=== PATIENT | female | born 1935 | race Caucasian/White ===

== ENCOUNTER 2016-09-16 11:38 | Inpatient (IN) | payer MEDICARE, MEDICAID ==
[2016-09-16] VITALS (12 sets, daily range): BP systolic 88–138; BP diastolic 48–76; BMI 21.8
[~2016-09-16] VITALS: Ht 162.6 cm; Wt 63.4 kg
[~2016-09-16 11:38] MED LIST: ACETAMINOPHEN500 M1 PO; ACIDOPHILUS LAC1 CAP PO; ARAVA10 MG PO; ASCORBIC ACID500 MG PO; ASPIRIN81 MG PO; ATIVAN0.5 MG PO; ATROVENT 0.02%2.5 ML UPD; ATROVENT HFA12.9 GM INH; BENZONATATE200 MG PO; BISCOLAX10 MG/SUPP RC; BROVANA15 MCG/2 M IH; BUMEX 1 MG TAB1 MG PO; CALCIUM 500 +1 EAC3 PO; CARAFATE1 G PO; CELEXA20 MG PO; CIPRO500 MG PO; CLEOCIN HCL150 MG PO; CLONAZEPAM2 MG/TAB PO; COLACE100 MG PO; CORDARONE200 MG PO; COREG6.25 MG PO; DETROL LA4 MG PO; DILAUDID2 MG PO; DILAUDID4 MG PO; DURAGESIC1 PATCH .1 TD; DURAGESIC1 PATCH .7 TD; EZFE 200200 MG PO; FERROUS SULFAT325 MG PO; FLUTICASONE PRO16 GM NASAL; FOLIC ACID1 MG PO; HYDROCORTISONE30 G9 TOPICAL; IBUPROFEN200 MG PO; IBUPROFEN400 MG PO; IPRAT-ALBUT 0.5-3 ML UPD; K-DUR20 MEQ PO; KLONOPIN1 MG PO; LASIX INJ40 MG/4 ML IV; LASIX20 MG PO; LEVAQUIN PREMI750 MG IV; LEVAQUIN500 MG PO; LEVAQUIN750 MG PO; LIORESAL 10 MG10 MG PO; LOPRESSOR25 MG PO; MEDROL DOSE PACK4 MG; MEDROL4 MG PO; MELATONIN 3 MG1 TAB PO; METHOTREXATE2.5 MG PO; MICRO-K10 MEQ PO; MIRALAX17 GM PO; MS CONTIN15 MG PO; MUCINEX DM ER1 EAC1 PO; MUCINEX600 MG PO; NEURONTIN 300300 MG PO; NITRO-DUR0.4 MG TD; NYSTATIN1 PWD TOPICAL; OMEPRAZOLE20 M1 PO; ONCOLOGY MOUTHWA5 ML PO; ORA RELIEF177 ML TOPICAL; OXYCODONE HCL10 MG; OXYCONTIN10 MG; PEPCID40 MG PO; PERCOCET 10/3251 TA1 PO; PLAVIX75 MG PO; POLYSPORIN OINT15 G1 TP; PRAVACHOL20 MG PO; PREDNISONE20 MG PO; PREDNISONE5 MG PO; PREVACID15 MG PO; PRILOSEC20 MG PO; PROCARDIA XL PO; PROTONIX I40 MG/VIAL IV; PROTONIX40 MG PO; PULMICORT0.5 MG/21 UPD; REQUIP0.5 MG PO; RISPERDAL0.5 MG PO; ROCEPHIN 1 GM IN1 GM IV; SALINE NASAL SP45 ML NASAL; SENNA PLUS PO; SENNA PLUS TA1 UDTAB PO; SEROQUEL25 MG PO; SEROQUEL50 MG PO; STERAPRED 5MG 125 MG PO; SYNTHROID25 MCG PO; TESSALON PERLE100 MG PO; TRAZODONE HCL50 MG PO; ULTRAM50 MG PO; VENTOLIN HFA18 GM INH; XOPENEX 1.1.25 MG/3 UPD; ZITHROMAX250 MG PO; ZITHROMAX500 MG PO
[2016-09-16 13:02] LABS: BASOPHILS 0.3 % (0.0-2.0); EOSINOPHILS 0.7 % (0-7); HEMATOCRIT 22.4 % (36.0-48.0); IMMATURE GRANULOCYTES 1.4 % (0-5); LYMPHOCYTES 28.8 % (15-50); MCH 29.1 pg (26.0-34.0); MCHC 30.8 g/dL (31.0-37.0); MCV 94.5 fL (80.0-100.0); MEAN PLATELET VOLUME 11.3 fL (7.4-10.4); MONOCYTES 15.4 % (2-11); NEUTROPHILS 53.4 % (40-80); RBC 2.37 10x6/uL (4.00-5.40); RDW 20.3 % (11.5-14.5); WBC 8.6 10x3/uL (4.8-10.8)
[2016-09-16 13:04] LABS: HEMOGLOBIN 6.9 g/dL (12-16); PLATELET COUNT 185 10x3/uL (130-400)
[2016-09-16 13:16] LABS: APTT 31.9 SECONDS (22.8-39.4); INR 1.13 (0.85-1.17); PROTIME 14.4 SECONDS (11.6-15.0)
[2016-09-16 13:27] LABS: ALBUMIN 2.2 g/dL (3.4-5.0); ANION GAP 13.3 mmol/L (8-16); BILIRUBIN - TOTAL 0.47 mg/dL (0.2-1.3); CALCIUM 8.6 mg/dL (8.5-10.1); CARBON DIOXIDE 25.3 mmol/L (21.0-32.0); POTASSIUM - SERUM 4.6 mmol/L (3.5-5.1); PROTEIN - SERUM 5.3 g/dL (6.4-8.2)
[2016-09-16 13:30] LABS: TROPONIN-I 0.029 ng/mL (0.000-0.060)
--- NOTE | 2016-09-16 14:04 | NUR ---
REC'D FROM ER. HOOKED UP TO CM. NS RATE OF 76. HYPOTENSIVE AT 88/48 WITH A MAP OF 64. A&0 X3. DENIES PAIN. REQUESTED H20, TOLD HER MAYBE AFTER THE PROCEDURE. DR. HICKS IN ROOM. DISCUSSED SCOPING WITH HER RR 14 EVEN AND UNLABORED. RIGHT 18 GAUGE AC PIV,SL. SCD'S PLACED. 2L O2 VIA NC. SATTING 94%. PENA. FOLLOWS COMMANDS.PPP. SEE FLOW SHEET FOR ADDITIONAL ASSESSMENT.
--- NOTE | 2016-09-16 14:45 | NUR ---
INCONTINENT OF STOOL. LIQUID MAROONE. 400 CC. BATHED. LINEN CHANGED.
--- NOTE | 2016-09-16 15:15 | NUR ---
DR. HICKS AT BEDSIDE. CONSENTS OBTAINED AND HAVE BEEN SIGNED FOR UPPER GI.
--- NOTE | 2016-09-16 15:20 | NUR ---
EGD IN PROGRESS. SEE JEANNIE MATTHEWS SUPERVISOR GENERAL INFORMATION.
--- NOTE | 2016-09-16 15:35 | NUR ---
ARRESTED. CODE BLUE INITIATED.
--- NOTE | 2016-09-16 15:35 | NUR ---
DR. LISA AMADOR.
--- NOTE | 2016-09-16 15:54 | NUR ---
DR. LISA AMADOR.
--- NOTE | 2016-09-16 16:34 | NUR ---
BLOOD BEING DRAWN FOR ABG'S BY ABDIRAHMAN RT
--- NOTE | 2016-09-16 16:36 | NUR ---
H&H 8.5
--- NOTE | 2016-09-16 16:40 | NUR ---
H&H RESULTS CALLED TO DR. GONZALEZ. 8.5 & 25. ORDERS REC'D TO GET H&H LEVEL AT 1900.
[2016-09-16 17:07] LABS: HEMATOCRIT 29.4 % (36.0-48.0); HEMOGLOBIN 9.3 g/dL (12-16)
--- NOTE | 2016-09-16 17:17 | NUR ---
DR. GERARDO NOTIFIED OF CONSULT.
--- NOTE | 2016-09-16 18:28 | NUR ---
FAMILY SPOKE WITH BY ADRIEL DOTY RN AND UPDATED.
--- NOTE | 2016-09-16 18:28 | NUR ---
PASSWORD OBTAINED. "GRACE".
--- NOTE | 2016-09-16 18:28 | NUR ---
ADRIEL DOTY RN SPOKE WITH MATTHEW OCHOA AND UPDATED ABOUT PT. HER PHONE NUMBER IS [phone].
--- NOTE | 2016-09-16 18:40 | NUR ---
DR. MCKEON PAGED ABOUT CONSULT.
--- NOTE | 2016-09-16 18:48 | NUR ---
DR. MCKEON RETURNED PAGE AND I UPDATED HIM ABOUT THE CONSULT.
--- NOTE | 2016-09-16 18:52 | NUR ---
OPENS EYES BUT DOES NOT FOLLOW COMMANDS
--- NOTE | 2016-09-16 19:20 | NUR ---
FILIPPO. FROM [facility]MR SITE CAME TO INTERROGATE HER LEFT UPPER CHEST WALL PACEMAKER/DEFIB. NO DEFIB PRESENT ACCORDING TO INTERROGATION. NO ISSUES SINCE JULY 2016. REPORT RECEIVED AT BEDSIDE BY JAD VEGA RN.
--- NOTE | 2016-09-16 21:15 | NUR ---
INCONTINENT OF BOWEL. CLEANSED MAROON COLORED STOOL FROM PERINEAL AREA. COMPLETE BED BATH AND LINEN CHANGE COMPLETED. APPROX. 100ML TOTAL NOTED. SPONTANEOUS JERKING WITH STIMULATION AND WITHOUT STIMULATION. COUGHS RATHER VIOLENTLY WHEN TURNED SIDE TO SIDE. PULLED UP IN BED AND TURNED AND REPOSITIONED. ORAL CARE PROVIDED.
--- NOTE | 2016-09-16 22:05 | NUR ---
DAUGHTER-POA CALLED AND CONSENTS OBTAINED FOR CVL PLACEMENT. VERIFIED BY 2ND RN.
--- NOTE | 2016-09-16 23:45 | NUR ---
JAEL AYON AT BEDSIDE TO DRAW Q6H H & H. REASSESSMENT COMPLETED. SEE ASSESSMENT FLOWSHEET FOR DETAILS.
[2016-09-17] VITALS (24 sets, daily range): BP systolic 84–168; BP diastolic 42–105
--- NOTE | 2016-09-17 | NUR ---
TEMP ASSESSED ORALLY. TEMP 103 FARENHEIT. ICE PACKS APPLIED TO BEHIND NECK AND RT GROIN.
[2016-09-17 00:01] LABS: HEMATOCRIT 31.2 % (36.0-48.0); HEMOGLOBIN 10.4 g/dL (12-16)
--- NOTE | 2016-09-17 00:42 | NUR ---
DR. GERARDO CALLED AND MADE AWARE OF TEMP AND JERKY TYPE MOVEMENTS STILL NOTED. NEW ORDERS RECEIVED.
--- NOTE | 2016-09-17 00:55 | NUR ---
DR. SINGH CALLED AND MADE AWARE OF CONSULT. NEW ORDERS RECEIVED.
--- NOTE | 2016-09-17 02:00 | NUR ---
TEMP REASSESSED. TEMP 100.9 ORALLY. UNCLAMPED NG TUBE AFTER KLONOPIN GIVEN. HOT TO TOUCH FOREHEAD. FAN IN ROOM AND ON HIGH. WILL MONITOR.
--- NOTE | 2016-09-17 02:40 | NUR ---
BACK IN SVT AGAIN FOR SECOND TIME IN LAST [address] MCKEON CALLED AND INFORMED OF HEART RATE IN THE 140'S AND CURRENT B/P. ORDERS RECEIVED. WILL MONITOR.
--- NOTE | 2016-09-17 03:45 | NUR ---
REASSESSMENT COMPLETED. SEE ASSESSMENT FLOWSHEET. PORTABLE CHEST XRAY JUST COMPLETED. TURNED AND REPOSITIONED. ORAL CARE PROVIDED. JUMPS TO STIMULATION IN A STARTLE TYPE REACTION. DOES NOT FOLLOW COMMANDS. WILL CONTINUE TO MONITOR.
--- NOTE | 2016-09-17 04:00 | NUR ---
HR IN THE 80'S-NSR NOW. ICE PACKS REFILLED AND REPLACED ON BODY. WILL MONITOR.
--- NOTE | 2016-09-17 05:34 | NUR ---
JERKING MOVEMENTS MORE FREQUENT AND IN LONGER DURATION APPROX. 10 SECONDS LONG NOW. IV ATIVAN 2 MG GIVEN ORDERED. WILL MONITOR.
--- NOTE | 2016-09-17 06:45 | NUR ---
REPORT GIVEN TO JAD ESPOSITO.
[2016-09-17 06:54] LABS: BASOPHILS 0.4 % (0.0-2.0); EOSINOPHILS 0.2 % (0-7); HEMATOCRIT 28.1 % (36.0-48.0); HEMOGLOBIN 9.3 g/dL (12-16); IMMATURE GRANULOCYTES 0.8 % (0-5); LYMPHOCYTES 15.3 % (15-50); MCH 29.9 pg (26.0-34.0); MCHC 33.1 g/dL (31.0-37.0); MEAN PLATELET VOLUME 11.4 fL (7.4-10.4); MONOCYTES 12.3 % (2-11); RDW 18.5 % (11.5-14.5); WBC 8.5 10x3/uL (4.8-10.8)
[2016-09-17 06:57] LABS: MCV 90.4 fL (80.0-100.0); PLATELET COUNT 144 10x3/uL (130-400); RBC 3.11 10x6/uL (4.00-5.40)
--- NOTE | 2016-09-17 07:00 | NUR ---
REC'D CARE OF PT. SEDATED ON VENT. VSS.
[2016-09-17 07:24] LABS: ANION GAP 17.1 mmol/L (8-16); CALCIUM 8.1 mg/dL (8.5-10.1); CARBON DIOXIDE 20.9 mmol/L (21.0-32.0); CREATININE - SERUM 1.2 mg/dL (0.6-1.3)
--- NOTE | 2016-09-17 07:44 | NUR ---
INITIAL ASSESSMENT COMPLETED. SEE FLOW SHEET. UNCONTROLLABLE TWITCHES NOTED. SEIZURE LIKE ACTIVITY. LEFT UPPER CHEST PERM PACER. BILAT PIV'S. CD&I. RESPNSE TO PAINFUL STIMULI. PENA. PPP. DOES NOT FOLLOW CONNANDS. CPOC.
--- NOTE | 2016-09-17 08:20 | NUR ---
DR. SINHG AT BEDSIDE.
--- NOTE | 2016-09-17 08:30 | NUR ---
IN AND OUT OF SVT RATE IN 140'S.
--- NOTE | 2016-09-17 09:40 | NUR ---
RIGHT SCTL INSERTED BY DR. KONG.
--- NOTE | 2016-09-17 09:55 | NUR ---
CHEST XRAY BEING DONE
--- NOTE | 2016-09-17 10:20 | NUR ---
DR. MCKEON IN ICU. DISCUSSED SVT WITH HIM. ORDERS REC'D.
--- NOTE | 2016-09-17 11:28 | NUR ---
CA GLUCONATE INITIATED
--- NOTE | 2016-09-17 11:28 | NUR ---
EEG BEING DONE
--- NOTE | 2016-09-17 12:23 | NUR ---
TO CT AND BACK FOR CT OF HEAD WITHOUT CONTRAST. UNEVENTFUL.
--- NOTE | 2016-09-17 12:27 | NUR ---
CVL HAS BEEN CLEARED BY RADIOLOGY TO USE.
[2016-09-17 13:00] LABS: HEMATOCRIT 29.7 % (36.0-48.0); HEMOGLOBIN 9.7 g/dL (12-16)
--- NOTE | 2016-09-17 13:30 | NUR ---
COMPLETE BATH AND LINEN CHANGE. READY CAP FOR HAIR.
--- NOTE | 2016-09-17 14:10 | NUR ---
REMAINS SEDATED ON VENT. VSS. CM=NS RATE OF 86.
[2016-09-17 16:47] LABS: HEMATOCRIT 30.4 % (36.0-48.0); HEMOGLOBIN 9.9 g/dL (12-16)
--- NOTE | 2016-09-17 17:00 | NUR ---
REMIANS ON VENT. SEDATED. VSS. NO DISTRESS.
--- NOTE | 2016-09-17 19:30 | NUR ---
REPORT REC'D AND CARE ASSUMED, REC'D PT ON VENT VIA 7.5 ETT TAPED @ 23CM LIPLINE SEE FLOWSHEET FOR VENT SETTINGS, RIGHT NARE NGT TO LIWS WITH GREEN RETURN NOTED, PLACEMENT VERIFIED VIA SM AIR BOLUS, RTLSCL DRSG CDI WITH PROTONIX @ 10CC/HR AND DIPRIVAN @ 30MCG/KG/MIN OR 11CC/HR, BP 65/49, DIPRIVAN PAUSED AT THIS TIME, PT DOES NOT RESPOND TO VERBAL OR TACTILE STIMULI, BILAT ARMS BRUISED WITH SCALY THIN SKIN, RIGHT A/C PIV SALINE LOCKED, LEFT FOREARM PIV SALINE LOCKED, ABD SOFT, BS HYPOACTIVE, PADILLA PATENT DRAINING CLEAR YELLOW URINE, PPP BY DOPPLER, BILAT SOFT WRIST RESTRAINTS INTACT.
--- NOTE | 2016-09-17 19:45 | NUR ---
BP IMPROVED WITH DIPRIVAN PAUSED, PT OPENING EYES SPONTANEOUSLY, NO RESPONSE TO TACTILE OR VERBAL STIMULI, COUGHING WHEN ORAL CARE INITIATED, WILL MONITOR CLOSELY FOR CHANGES.
--- NOTE | 2016-09-17 20:15 | NUR ---
SPOKE WITH PT'S DAUGHTER IN [place] AFTER VERIFYING PASSWORD, UPDATE PROVIDED.
--- NOTE | 2016-09-17 20:45 | NUR ---
EVENING MEDS GIVEN, CVP INITIATED AT THIS TIME, LEVELED AND ZEROED WITH A READING OF 8
--- NOTE | 2016-09-17 21:15 | NUR ---
PT INCONTINENT OF SM BLACK TARRY STOOL, PARTIAL BATH AND LINEN CHANGE PROVIDED, PT REPOSITIONED UP IN BED AND ONTO RIGHT SIDE SUPPORTED WITH PILLOWS.
--- NOTE | 2016-09-17 22:55 | NUR ---
BLOOD DRAWN FROM CVP AND SENT TO LAB FOR TIMED H AND H, REASSESSMENT COMPLETED, PT CONTINUES TO NOT RESPOND TO VERBAL OR TACTILE STIMULI, VSS, WILL MONITOR CLOSELY FOR CHANGES.
[2016-09-17 22:56] LABS: HEMOGLOBIN 10.4 g/dL (12-16)
--- NOTE | 2016-09-17 23:45 | NUR ---
PT INCONTINENT OF SMALL BLACK TARRY STOOL, PARTIAL BATH AND LINEN CHANGE GIVEN, PT REPOSITIONED UP IN BED AND ONTO LEFT SIDE SUPPORTED WITH PILLOWS, PT TOLERATED WELL
[2016-09-18] VITALS (24 sets, daily range): BP systolic 93–142; BP diastolic 38–80; Ht 162.6 cm; Wt 63.4 kg
--- NOTE | 2016-09-18 02:00 | NUR ---
NO CHANGES IN STATUS AT THIS TIME
--- NOTE | 2016-09-18 03:30 | NUR ---
RADIOLOGY @ BS FOR AM CXR
--- NOTE | 2016-09-18 05:20 | NUR ---
AM LAB DRAWN FROM CV AND SENT TO LAB.
[2016-09-18 05:38] LABS: HEMATOCRIT 32.7 % (36.0-48.0); HEMOGLOBIN 10.3 g/dL (12-16)
--- NOTE | 2016-09-18 06:00 | NUR ---
SISTER IN LAW AT , UPDATE GIVEN AND QUESTIONS ANSWERED.
[2016-09-18 06:13] LABS: ALBUMIN 2.2 g/dL (3.4-5.0); AMYLASE - SERUM 31 U/L (25-115); CALC OSMOLALITY 291 mosm/kg (275-300); CALCIUM 7.9 mg/dL (8.5-10.1); CARBON DIOXIDE 18.7 mmol/L (21.0-32.0); CHLORIDE - SERUM 108 mmol/L (98-107); CHOL - HDL RATIO 3.3 ratio (2.3-4.1); CHOLESTEROL, TOTAL 120 mg/dL (0-200); CKMB 13.6 U/L (0.0-3.6); CREATININE - SERUM 1.3 mg/dL (0.6-1.3); GLUCOSE 97 mg/dL (74-106); HDL CHOLESTEROL 36 mg/dL (32-96); LDL CHOLESTEROL 43 mg/dL (0-100); LDL-HDL RATIO 1.2 ratio (1.5-3.5); LIPASE 60 U/L (73-393); MAGNESIUM - SERUM 1.9 mg/dL (1.8-2.4); PHOSPHOROUS 3.5 mg/dL (2.5-4.9); PRO BNP 12386 pg/mL (0-450); SODIUM 142 mmol/L (136-145); THYROID STIMULATING HORMONE 4.13 uIU/mL (0.36-3.74); TRIGLYCERIDE 209 mg/dL (30-200); UREA NITROGEN 39 mg/dL (7-18); eGFR NON AFRICAN AMERICAN 42 mL/min (90-120)
[2016-09-18 06:17] LABS: ALKALINE PHOSPHATASE 25 U/L (46-116); ALT (SGPT) 24 U/L (10-68); POTASSIUM - SERUM 4.2 mmol/L (3.5-5.1); PROTEIN - SERUM 3.1 g/dL (6.4-8.2)
[2016-09-18 06:19] LABS: TROPONIN-I 2.589 ng/mL (0.000-0.060)
--- NOTE | 2016-09-18 11:51 | NUR ---
0800 REPORT RECIEVED AND CARE ASSUMED OF PT.. SEE FLOW SHEET FOR ASSESMENT FINDINGS.. PY IS ORALLY INTUBATED AND VENTILATED.. SEDATED WITH DIPRIVAN 15 MCG.. THERE IS A RIGHT CVL FOR IV FLUIDS.. PT IS NOT APPROPRIATLY RESPONSIVE TO STIMULI... [address] SINGH AND DR VALDEZ;ETTA IN TO SEE PT THEY DISCUSSED PT CASE.. 0900 FAMILY IN TO SEE PT AND DR SINGH SPOKE WITH HER.. EXPLAINED TO THE FAMILY THAT PROGNOSIS IS POOR... PT REMAINS UNCHANGED.. 1000 DR YANG IN TO SEE PT.. UPDATE GIVEN.. 1100 WITHOUT CHANGES..
--- NOTE | 2016-09-18 14:58 | NUR ---
Patient Name: GUY LORD Admission Status: ER Accout number: [id number] Admission Date: 09-16-2016 : 1935 Admission Diagnosis: Attending: JOHN Current LOS: 2 Anticipated DC Date: UNSURE Planned Disposition: UNSURE Primary Insurance: [employer] PPO MCR ADVANT Is the patient Alert and Oriented? No * Pharmacy [facility] * Preadmission Environment [facility]pc Facility * Facility Name [facility] * List name and contact numbers for known caregivers / representatives who currently or will assist patient after discharge: PARISH MCDONALD, SISTER IN LAW, * Additional services required to return to the preadmission environment? Yes * Can the patient safely return to the preadmission environment? Yes * Has this patient been hospitalized within the prior 30 days at any hospital? No Discharge Planning Comments: CM ATTEMPTED TO MEET WITH PATIENT TO ASSESS DC PLAN/NEEDS. PT IS CURRENTLY INTUBATED AND SEDATED AND UNABLE TO PARTICIPATE IN DC PLANNING. PT IS WELL KNOWN TO CM FROM PREVIOUS ADMISSIONS AND PATIENT DISCHARGED TO [facility] AT LAST DISCHARGE. CM PLACED CALL TO MANPREET PEREZ, LIAISON WITH [facility], TO INQUIRE ABOUT BED STATUS FOR PATIENT AT NURSING FACILITY. MANPREET STATED THAT PT HAS BEEN IN A LONG-TERM MEDICAID BED AT [facility] AND ADMITTED TO [facility] FROM [facility]. SHE STATED THAT PATIENT HAS DAUGHTER LISTED ON HER EMERGENCY CONTACT INFORMATION AT THE [facility]. PT'S DAUGHTER'S NAME IS MATTHEW OCHOA AND THE CONTACT NUMBER SHE PROVIDED WAS [phone]. PT'S BEDSIDE RN, CONNIE, STATED THAT PT HAS [id number] LISTED ON EMERGENCY CONTACTS NAMED PARISH MCDONALD AND THAT SHE HAS BEEN IN CONTACT WITH THE ICU NURSES, SHE HAS SPOKEN WITH DR SINGH AND THAT SHE TOLD RN THAT SHE WAS IN CONTACT WITH PT'S DAUGHTER. THE ONLY CONTACT THAT PT PROVIDED ON ADMISSION WAS PARISH MCDONALD, CM WILL AWAIT ANY MD ORDERS TO PROCEED WITH DC PLAN. MANPREET PEREZ STATED PT HAS BED ON HOLD AT THE [facility]. CASE MANAGEMENT WILL FOLLOW AND ASSIST NEEDED WITH DC PLAN/NEEDS. Director Of Event Management: Jania Bryant
--- NOTE | 2016-09-18 15:33 | NUR ---
1200 FAMILY IN TO SEE PT.. PT IS WITHOUT CHANGES.. SON CALLED AND UPDATE JARVIS STATED HE WOULD TALK WITH HIS SISTER (POA) 1400RESP TX IN PROGRESS.. 1500 FAMILY IN TO SEE PT AND UPDATE IS GIVEN..
[2016-09-18 17:00] LABS: HEMATOCRIT 33.8 % (36.0-48.0); HEMOGLOBIN 10.9 g/dL (12-16)
--- NOTE | 2016-09-18 19:35 | NUR ---
REC'D PT ON VENT VIA 7.5 ETT TAPED @ 23CM LIPLINE SEE FLOWSHEET FOR VENT SETTINGS, RIGHT NARE NGT SECURED WITH KALLI, PLACEMENT VERIFIED VIA SM AIR BOLUS AUSCULTATED OVER EPIGASTRIM, NGT TO LIWS, PT WILL OPEN EYES WITH STIMULATION BUT DOES NOT FOLLOW COMMANDS OR TRACK, NO PURPOSEFUL MOVEMENT NOTED, RTLSCL DRSG CDI WITH PROTONIX @ 10CC/HR AND DIPRIVAN @ 15MCG/KG/MIN, RIGHT A/C PIV SALINE LOCKED, LEFT FOREARM PIV SALINE LOCKED, PADILLA PATENT DRAINING YELLOW URINE, BILAT ARMS AND LEGS NOTED TO HAVE DRY CRACKING SKIN AND BRUISES TO ARMS, BILAT SCD'S INTACT, HEELS BRIDGED, BILAT SOFT WRIST RESTRAINTS, SR UP X 2, VISIBLE TO NURSES STATION.
--- NOTE | 2016-09-18 21:00 | NUR ---
EVENING MEDS GIVEN, PT REPOSITIONED UP AND ONTO LEFT SIDE, ORAL CARE PROVIDED, NO VISITORS IN AT THIS TIME.
--- NOTE | 2016-09-18 23:15 | NUR ---
REASSESSMENT COMPLETED, NO CHANGES IN NEURO STATUS, PT REPOSITIONED FOR COMFORT, VSS.
[2016-09-19] VITALS (24 sets, daily range): BP systolic 99–152; BP diastolic 47–81
--- NOTE | 2016-09-19 01:00 | NUR ---
ROUTINE MEDS GIVEN, VSS, WILL CONT TO MONITOR
--- NOTE | 2016-09-19 03:30 | NUR ---
RADIOLOGY At BS FOR AM CXR
--- NOTE | 2016-09-19 04:45 | NUR ---
COMPLETE BATH AND LINEN CHANGE GIVEN, PT REPOSITIONED UP IN BED AND TURNED TO RIGHT SIDE, ARMS ELEVATED ON PILLOWS, HEELS BRIDGED, TOLERATED WELL.
--- NOTE | 2016-09-19 06:00 | NUR ---
NO VISITORS IN AT THIS TIME
[2016-09-19 06:33] LABS: BASOPHILS 0.5 % (0.0-2.0); EOSINOPHILS 0.1 % (0-7); HEMATOCRIT 33.6 % (36.0-48.0); HEMOGLOBIN 10.7 g/dL (12-16); IMMATURE GRANULOCYTES 0.5 % (0-5); LYMPHOCYTES 15.4 % (15-50); MCH 29.8 pg (26.0-34.0); MCHC 31.8 g/dL (31.0-37.0); MEAN PLATELET VOLUME 11.6 fL (7.4-10.4); MONOCYTES 16.5 % (2-11); RBC 3.59 10x6/uL (4.00-5.40); RDW 19.4 % (11.5-14.5)
[2016-09-19 06:34] LABS: MCV 93.6 fL (80.0-100.0); PLATELET COUNT 188 10x3/uL (130-400); WBC 11.7 10x3/uL (4.8-10.8)
[2016-09-19 06:56] LABS: ALBUMIN 2.2 g/dL (3.4-5.0); ANION GAP 20.2 mmol/L (8-16); BILIRUBIN - TOTAL 0.5 mg/dL (0.2-1.3); CALCIUM 7.9 mg/dL (8.5-10.1); CARBON DIOXIDE 18.2 mmol/L (21.0-32.0); MAGNESIUM - SERUM 2.1 mg/dL (1.8-2.4); POTASSIUM - SERUM 4.4 mmol/L (3.5-5.1)
[2016-09-19 07:03] LABS: CREATININE - SERUM 1.7 mg/dL (0.6-1.3); PROTEIN - SERUM 5.7 g/dL (6.4-8.2)
--- NOTE | 2016-09-19 10:09 | OP ---
PATIENT NAME: GUY LORD MEDICAL RECORD: [id number] :36 LOCATION:D.[facility] [id number] ADMISSION DATE:09/16/16 SURGEON: VISHNU KONG MD DATE OF OPERATION: 09/17/2016 PREOPERATIVE DIAGNOSES: 1. Respiratory failure, on the ventilator. 2. Hemorrhagic shock secondary to the upper gastrointestinal bleed. 3. Upper gastrointestinal bleed secondary to gastric ulcer. 4. Chronic obstructive pulmonary disease. 5. Lactic acidosis. 6. Acute blood loss anemia. 7. Rheumatoid arthritis. POSTOPERATIVE DIAGNOSES: 1. Respiratory failure, on the ventilator. 2. Hemorrhagic shock secondary to the upper gastrointestinal bleed. 3. Upper gastrointestinal bleed secondary to gastric ulcer. 4. Chronic obstructive pulmonary disease. 5. Lactic acidosis. 6. Acute blood loss anemia. 7. Rheumatoid arthritis. PROCEDURE: Right subclavian vein triple-lumen central venous line placement. SURGEON: Vishnu Kong MD REPORT OF PROCEDURE: The patient's right chest was prepped and draped in sterile fashion. A needle was used to cannulate the right subclavian vein. The guidewire was advanced with ease. Over this wire, a dilator was placed followed by the triple lumen catheter. The catheter aspirated nonpulsatile dark blood and flushed easily in all 3 ports with normal saline. This was sutured into place with 3-0 silk ties and dressed appropriately. COMPLICATIONS: None. CONDITION: Stable. ANESTHESIA: General endotracheal. BLOOD LOSS: Minimal. Procedure done at the bedside. TRANSINT:[id number] Voice Confirmation ID: [id number] DOCUMENT ID: [id number] VISHNU KONG MD at 1009 CC: [id number] DICTATION DATE: 09/17/16 1113 CARRIER BLOWER: 09/17/16 1120 ADM IN [address] [id number] [place] [address]
--- NOTE | 2016-09-19 11:56 | NUR ---
0800 AM ASSESMENT IS COMPLETE SEE FLOW SHEET FOR FINDINGS.. PT IS ORALLY INTUBATED AND SEDATED ON VENT .. CONTACT ISOLATION .. 0900 WITHOUT VISITORS AT THIS TIME.. DR NAYLOR IN TO SEE PT AND SEDATION OFF AT THIS TIME.. DR KWONG IN TO SEE PT.. 1000 PT REMAINS WITHOUT CHANGES IN RESPONSSES SINCE DIPRIVAN OFF. RESPIRATIONS ARE ELEVATED INTO 20 AND 30 .. VENT SET ON AN AC.. DIPRIVAN REINITIATED... 1100 NO CHANGES AND NERW BAG PROTONIX HUNG ... DR YANG IN TO SEE PT UPDATE IS GIVEN AT THIS TIME..
--- NOTE | 2016-09-19 16:01 | NUR ---
1200 FAMILY MEMBER PARISH IN TO SEE PT ANAD UPDATE GIVEN PARISH PRODUCED COPY OF PTS ADVANCE DIRECTIVE TO BE PLACED ON THE PTS CHART AND THE INFORMATION ON DIRECTIVE TO BE IMPARTED TO MATTHEW OCHOA PTS POA.. 1330 SON SUKHDEEP CALLED AND UPDATE IS GIVEN.. 1500 PARISH AND PT BROTHER IN TO SEE PT.. UPDATE IS GIVEN.. 1600 NO CHANGES AT THIS TIME..
--- NOTE | 2016-09-19 18:16 | NUR ---
1800 PARISH IN TO SEE PT .. PUPDATE CHEMO..
--- NOTE | 2016-09-19 21:10 | NUR ---
FAMILY AT BEDSIDE. GIVEN UPDATE. NO NEW CHANGES AT THIS TIME. WILL CONTINUE TO MONITOR.
--- NOTE | 2016-09-19 23:15 | NUR ---
REASSESSMENT COMPLETE, NO CHANGES NOTED, PT REPOSITIONED FOR COMFORT, ORAL CARE PROVIDED
[2016-09-20] VITALS (19 sets, daily range): BP systolic 63–175; BP diastolic 39–81
--- NOTE | 2016-09-20 01:15 | NUR ---
REPOSITIONED FOR COMFORT, ORAL CARE PROVIDED
--- NOTE | 2016-09-20 03:05 | NUR ---
REASSESSMENT COMPLETE, NO CHANGES NOTED, REPOSITIONED FOR COMFORT, ORAL CARE PROVIDED
[2016-09-20 04:17] LABS: BASOPHILS 0.4 % (0.0-2.0); EOSINOPHILS 0.1 % (0-7); HEMATOCRIT 30.1 % (36.0-48.0); HEMOGLOBIN 9.5 g/dL (12-16); IMMATURE GRANULOCYTES 0.6 % (0-5); LYMPHOCYTES 16.2 % (15-50); MCH 29.4 pg (26.0-34.0); MCHC 31.6 g/dL (31.0-37.0); MCV 93.2 fL (80.0-100.0); MEAN PLATELET VOLUME 11.6 fL (7.4-10.4); NEUTROPHILS 64.7 % (40-80); PLATELET COUNT 104 10x3/uL (130-400); RBC 3.23 10x6/uL (4.00-5.40); RDW 19.5 % (11.5-14.5); WBC 10.2 10x3/uL (4.8-10.8)
[2016-09-20 04:26] LABS: ALBUMIN 2.1 g/dL (3.4-5.0); BILIRUBIN - TOTAL 0.48 mg/dL (0.2-1.3); CALCIUM 8.2 mg/dL (8.5-10.1); CARBON DIOXIDE 21.7 mmol/L (21.0-32.0); CREATININE - SERUM 1.6 mg/dL (0.6-1.3); MAGNESIUM - SERUM 2.2 mg/dL (1.8-2.4); PROTEIN - SERUM 5.3 g/dL (6.4-8.2)
[2016-09-20 04:28] LABS: POTASSIUM - SERUM 3.6 mmol/L (3.5-5.1)
[2016-09-20 04:29] LABS: ANION GAP 14.9 mmol/L (8-16)
--- NOTE | 2016-09-20 05:00 | NUR ---
COMPELTE BATH AND LINEN CHANGE, REPOSITIONED FOR COMFORT, ORAL CARE PROVIDED
--- NOTE | 2016-09-20 07:25 | NUR ---
FAMILY HERE ASKING ABOUT WHEN GOING TO EXTUBATE PT. ASKED THEM IF THERE WERE SUPPOSED TO BE OTHER FAMILY MEMBERS PRESENT. THEY CONFIRMED THERE WAS. ASKED THEM TO GET EVERYONE TOGETHER AND THEN WE WOULD WORK ON A TIME THIS MORNING TO HAVE THEM ALL HERE.
--- NOTE | 2016-09-20 08:30 | NUR ---
FAMILY IS BACK WITH A FEW ADDITIONAL MEMBERS. HAVE ASKED AGAIN ABOUT EXTUBATION, BUT NOT EVERYONE IS HERE. DR YANG CALLED TO LET KNOW FAMILY WANTING TO DO THE EXTUBATION THIS MORNING.
--- NOTE | 2016-09-20 09:28 | NUR ---
DR YANG ON UNIT. FAMILY READY FOR EXTUBATION.
--- NOTE | 2016-09-20 10:42 | NUR ---
PT GIVEN FENTANYL AT 945 PRIOR TO EXTUBATION. ATIVAN GIVEN AT 1000. EXTUBATED AT 1010AM AND PLACED ON 2L NC. ADDITIONAL 2MG ATIVAN GIVEN AT 1030. PT RESPIRATIONS AT 29 AT THIS TIME, HR 80, AND BP 110/55. RESTING COMFORTABLY. FAMILY AT BEDSIDE.
--- NOTE | 2016-09-20 11:19 | NUR ---
SPOKE WITH DAUGHTER MATTHEW, UPDATE GIVEN. LET HER KNOW THAT IF PT ABLE TO MAINTAIN RESPIRATION AND HEART RATE THE OTHER FAMILY MEMBERS HAVE REQUESTED [facility] BE CONSULTED. SHE IS IN AGREEMENT. SHE WILL CALL BACK LATER FOR AN UPDATE. LET HER KNOW I WOULD CONTACT HER WITH ANY NEW DEVELOPMENTS.
--- NOTE | 2016-09-20 12:20 | NUR ---
FAMILY AT BEDSIDE. VSS.
--- NOTE | 2016-09-20 13:19 | NUR ---
PATIENT WAS TERMINALLY EXTUBATED EARLIER TODAY. SHE HAS CONTINUED TO BREATHE AND FAMILY HAS REQUESTED HOSPICE CARE. FAMILY HAS REQUESTED [facility] FOR INPATIENT HOSPICE. THEY STATE THEY HAD FAMILY THERE IN THE PAST AND WERE VERY PLEASED WITH THEM. I HAVE CONTACTED VIKAS AT [facility] [phone]. I HAVE FAXED THE ORDER, H&P, FS, AND LATEST PROGRESS NOTE FOR REFERRAL.
--- NOTE | 2016-09-20 14:47 | NUR ---
RECEIVED PHONE CALL FROM DEV IN INFECTIOUS DISEASE OFFICE. 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 FAMILY AT BEDSIDE NOTIFIED AND PROVIDED WITH MASKS. ADDITIONAL MASKS PLACED ON ISOLATION CART.
--- NOTE | 2016-09-20 15:18 | NUR ---
PT RESTING COMFORTABLY. VSS. FAMILY AT BEDSIDE.
--- NOTE | 2016-09-20 16:09 | NUR ---
[facility] HERE SPEAKING WITH FAMILY IN FAMILY ROOM.
--- NOTE | 2016-09-20 16:35 | NUR ---
PADILLA CARE PROVIDED. PT HAD BLACK, TARRY BM THAT WAS ALSO CLEANED UP. PARTIAL LINEN CHANGE PROVIDED.
--- NOTE | 2016-09-20 17:30 | NUR ---
CENTRAL LINE DRESSING CHANGED PER PROTOCOL. INITIALED AND DATED
--- NOTE | 2016-09-20 17:41 | NUR ---
PT STARTING TO HAVE MORE AIR HUNGER SYMPTOMS. ATIVAN DOSING DOES LITTLE TO REDUCE SYMPTOMS. NO OTHER MEDICATIONS ON EMAR.
--- NOTE | 2016-09-20 19:18 | NUR ---
REPORT CALLED TO MADY ESPOSITO AT [facility]. PT IS ON ISOLATION FOR ACINTOBACTER IN SPUTUM AND E-COLI IN URINE. PT WAS TERMINALLY EXTUBATED TODAY AT 10:10 AM. HAS BEEN GIVEN 4 DOSES OF ATIVAN 2MG AND A TOTAL OF 2 DOSES OF FENTANYL 100MCG. WAS ADMITTED 09/16 WITH A GI BLEED AND CODED AT TIME OF EGD OR SHORTLY THEREAFTER. PT HAS BILATERAL ARM BRUSING WITH DRY SKIN, DOES SHOW SOME REDNESS AT ROSA-AREA DUE TO STOOL. HAS HAD BLACK TARRY STOOL TODAY. PT IS BEING ADMITTED TO DR KHURRAM LEIGH TO ROOM 556.
--- NOTE | 2016-09-22 11:11 | CN ---
PATIENT NAME:GUY LORD MEDICAL RECORD: [id number] : 37 LOCATION:[id number] ADMIT DATE: 09/16/16 ACCOUNT: [id number] CONSULTING PHYSICIAN: VIKKI MCKEON MD REFERRING PHYSICIAN: OTONIEL GONZALEZ MD DATE OF CONSULTATION: 09/17/2016 Cardiology Consultation DIAGNOSES: 1. Status post cardiopulmonary arrest. 2. Supraventricular tachycardia. 3. Sick sinus syndrome. 4. Status post pacemaker placement. 5. Mitral regurgitation. HISTORY OF PRESENT ILLNESS: Mrs. Lord was here for GI bleed, underwent endoscopy, had a cardiopulmonary arrest after this. She has had episodes of supraventricular tachycardia with heart rates in the 180s. She does have a pacemaker. Pacemaker was interrogated. She has had no ventricular dysrhythmias, only supraventricular tachycardia. She was previously on Coreg for this. She had a low blood pressure. Initially, she was given digoxin. She has had one episode of supraventricular tachycardia since being on the digoxin. She is still undergoing digoxin loading. She does remain intubated and sedated. PHYSICAL EXAMINATION: GENERAL APPEARANCE: Well-nourished, well-developed, appears stated age. Level of distress, comfortable. PSYCHIATRIC: Mental status, alert, normal affect. Orientation, oriented to time, place and person. EYES: Lids and conjunctiva, noninjected. No discharge, no pallor. ENT: Lips, teeth, gums, normal dentition. Oropharynx, no cyanosis, no pallor. NECK: Carotid arteries, bilateral normal upstroke, no bruits, no thrills. JUGULAR VEINS: No jugular venous pressure or distention. CERVICAL LYMPH NODES: Nontender, nonenlarged. THYROID: Not enlarged. Nontender. No nodules. LUNGS: Respiratory effort, unlabored. CHEST: Normal curvature. No thoracic deformity. No chest wall tenderness. Percussion, resonant. Auscultation, clear. No wheezes, no rales, no rhonchi. CARDIOVASCULAR: Precordial exam, nondisplaced. No heaves or pericardial thrills. Rate and rhythm, regular. Heart sounds, normal S1, normal S2. No S3, no gallop, no rub. Systolic murmur, not heard. Diastolic murmur, not heard. EXTREMITIES: No cyanosis, no edema. Peripheral pulses, full and equal in all extremities, except as noted. No bruits appreciated. ABDOMEN: Soft, nondistended. Normal aorta. No bruit. Nontender. No masses. Liver, nontender, no hepatomegaly. Spleen, nontender, no splenomegaly. MUSCULOSKELETAL: No joint tenderness. No joint swelling. No erythema. NEUROLOGICAL: Normal gait, normal strength, normal tone. SKIN: Warm and dry. OVERALL IMPRESSION: Episodes of supraventricular tachycardia with pacemaker interrogation. She is having no ventricular dysrhythmias. She should respond to AV blocking medications such as digoxin and Lopressor. We will add IV Lopressor 5 mg q.4 hours to her digoxin. Continue the digoxin load and then do daily digoxin. She has no history of ischemic heart disease from a cardiac CONSULT REPORT [id number] GUY LORD standpoint. No other workup or treatment is necessary. She had an echocardiogram in August. This revealed normal ejection fraction, mild mitral regurgitation, only treatment of the dysrhythmia. TRANSINT:[id number] Voice Confirmation ID: [id number] DOCUMENT ID: [id number] VIKKI MCKEON MD at 1111 CC: [id number] DICTATION DATE: 09/17/16 1029 SHELF STOCKER: 09/17/16 1041 DIS IN 09/20/16 [id number] [place] [address]
--- NOTE | 2016-10-01 07:21 | EEG ---
PATIENT:GUY LORD DATE OF SERVICE: 09/16/16 MEDICAL RECORD: [id number] DATE OF : 37 LOCATION:D.230 D.ICU ADMISSION DATE: 09/16/16 REFERRING PHYSICIAN: INTERPRETING PHYSICIAN: BENSON SINGH MD DATE OF SERVICE: 09/17/2016 Referred as an inpatient by myself, currently in room 2301. ELECTROENCEPHALOGRAM NUMBER: [id number] DATE OF EXAMINATION: 09/17/2016 at 11:20 a.m. TECHNICAL DATA: This electroencephalographic recording consisted of approximately 20 minutes of data collection utilizing the international 10/20 system of electrode placement and both referential and non-referential montages. Sixteen channels of electrocerebral recording are accompanied by a 17th channel dedicated to the electrocardiographic rhythm and 2 channels of electromyographic recording. The recording is performed entirely in the comatose state utilizing activation by photic stimulation. ELECTROENCEPHALOGRAPHIC DATA: The entirety of the recorded electrocerebral activity is performed in the comatose state. A Diprivan drip is turned off at the beginning of the recording. Rapid eye movements are not seen. The posterior dominant background is not observed. The study is monotonous and consists of bursts of high amplitude, mixed fast and slow wave activity, generally lasting for periods of 1-5 seconds. These epochs are by periods of suppression of all electrocerebral activity, lasting variously from 3-8 seconds. This pattern continues unchanged throughout the recording. Photic stimulation induces no change in the recorded electrocerebral activity. INTERPRETATION: Burst suppression (coma). This electroencephalographic recording is indicative of a very severe diffuse encephalopathy and bodes poorly for potential neurologic recovery. TRANSINT:[id number] Voice Confirmation ID: [id number] DOCUMENT ID: [id number] BENSON SINGH MD at 0721 CC: [id number] DICTATION DATE: 09/18/[address] SECURITY OFFICER: 09/18/16 0841 DIS IN 09/20/16 [id number] [place] [address]
== END 2016-09-20 20:30 | disposition home health service (06) | DRG 377 ==
LOC: D.ER 11:38 → D.ICU 13:40
PROVIDERS: Family Medicine; Internal Medicine Gastroenterology; Internal Medicine Pulmonary Disease; ADMIT Family Medicine Adult Medicine
PROC: 0W3P8ZZ Control Bleeding in Gastrointestinal Tract, Via Natural or Artificial Opening Endoscopic (ICD-10-PCS; 2016-09-16)
PROC: 5A12012 Performance of Cardiac Output, Single, Manual (ICD-10-PCS; 2016-09-16)
PROC: 5A1945Z Respiratory Ventilation, 24-96 Consecutive Hours (ICD-10-PCS; 2016-09-16)
PROC: 0T9B70Z Drainage of Bladder with Drainage Device, Via Natural or Artificial Opening (ICD-10-PCS; 2016-09-16)
PROC: 0BH17EZ Insertion of Endotracheal Airway into Trachea, Via Natural or Artificial Opening (ICD-10-PCS; 2016-09-16)
PROC: 0D9670Z Drainage of Stomach with Drainage Device, Via Natural or Artificial Opening (ICD-10-PCS; 2016-09-16)
PROC: 0DB68ZX Excision of Stomach, Via Natural or Artificial Opening Endoscopic, Diagnostic (ICD-10-PCS; principal; 2016-09-16 15:00)
PROC: 05H533Z Insertion of Infusion Device into Right Subclavian Vein, Percutaneous Approach (ICD-10-PCS; 2016-09-17)
DX: K25.0 Acute gastric ulcer with hemorrhage (principal); J96.90 Respiratory failure, unspecified, unspecified whether with hypoxia or hypercapnia; I46.9 Cardiac arrest, cause unspecified; J69.0 Pneumonitis due to inhalation of food and vomit; I21.4 Non-ST elevation (NSTEMI) myocardial infarction; D62 Acute posthemorrhagic anemia; E87.2 Acidosis; I13.0 Hypertensive heart and chronic kidney disease with heart failure and stage 1 through stage 4 chronic kidney disease, or unspecified chronic kidney disease; I50.32 Chronic diastolic (congestive) heart failure; G93.1 Anoxic brain damage, not elsewhere classified; N39.0 Urinary tract infection, site not specified; I47.1 Supraventricular tachycardia; K44.9 Diaphragmatic hernia without obstruction or gangrene; J44.9 Chronic obstructive pulmonary disease, unspecified; I25.10 Atherosclerotic heart disease of native coronary artery without angina pectoris; M06.9 Rheumatoid arthritis, unspecified; N18.3 Chronic kidney disease, stage 3 (moderate); E78.5 Hyperlipidemia, unspecified; I08.1 Rheumatic disorders of both mitral and tricuspid valves; I27.2 Other secondary pulmonary hypertension; G25.81 Restless legs syndrome; J32.9 Chronic sinusitis, unspecified; B96.20 Unspecified Escherichia coli [E. coli] as the cause of diseases classified elsewhere; E87.6 Hypokalemia; Z78.1 Physical restraint status; Z95.0 Presence of cardiac pacemaker; I95.9 Hypotension, unspecified; Z72.0 Tobacco use